=== PATIENT | female | born 1935 | race Caucasian/White ===

== ENCOUNTER 2018-10-03 17:55 | Emergency (ER) | payer MEDICARE | END 2018-10-03 23:10 | disposition home or self-care (01) | LOC: ER 17:55 ==

== ENCOUNTER → 2021-04-14 | Outpatient (CLI) | payer OTHER, MEDICARE ==
[~2021-04-14] MED LIST: AC325T PO; ACHD5005 PO; ALBU2.5V52 INH; ASP81TEC PO; CEPH-507 PO; GLIP5TAB13 PO; INSU100V13 SC; NF-DICLTB PO; OLME20TA21 PO; PGLT30T PO; POLY17PO23 PO; TRM50T PO; ZLP5T PO
== END ==
LOC: GIR 17:32
PROVIDERS: ATTEND Family Medicine
DX: Z01.89 Encounter for other specified special examinations (principal)
CPT/HCPCS: 84145

== ENCOUNTER → 2021-04-15 | Outpatient (CLI) | payer MEDICARE ==
[2021-04-15 13:45] LABS: ABSOLUTE RETIC # 41 10e9/uL (24-90); RETICULOCYTE % 1.16 % (0.50-2.40)
[2021-04-15 13:50] LABS: EOSINOPHILS % (MANUAL) 1 %; LYMPHOCYTES % (MANUAL) 3 %; MONOCYTES % (MANUAL) 2 %; NEUTROPHILS % (MANUAL) 94 %; RBC MORPH NORMAL
== END ==
LOC: LABNPT 13:32
PROVIDERS: ATTEND Family Medicine
DX: D72.829 Elevated white blood cell count, unspecified (principal); A41.9 Sepsis, unspecified organism
CPT/HCPCS: 85007; 85045; 85055

== ENCOUNTER → 2021-08-23 | Outpatient (CLI) | payer MEDICARE ==
[2021-08-23 11:05] LABS: ABSOLUTE RETIC # 38 10e9/uL (24-90); RETICULOCYTE % 1.06 % (0.50-2.40)
[2021-08-23 11:16] LABS: ANISOCYTOSIS SLIGHT; BAND NEUTROPHILS 5 %; BASOPHILS % (MANUAL) 0 %; EOSINOPHILS % (MANUAL) 1 %; LYMPHOCYTES % (MANUAL) 10 %; MONOCYTES % (MANUAL) 6 %; NEUTROPHILS % (MANUAL) 78 %
== END ==
LOC: GIR 10:56
PROVIDERS: ATTEND Family Medicine
DX: D72.829 Elevated white blood cell count, unspecified (principal)
CPT/HCPCS: 85007; 85045; 85055